=== PATIENT | male | born 1975 | race Caucasian/White ===

== ENCOUNTER 2023-10-07 11:55 | Inpatient (IN) | payer OTHER ==
[2023-10-07 12:37] VITALS: BMI 24.7
[2023-10-07] MEDS ORDERED: BISMUTH SUBSALICYLATE 524 MG/30 ML PO PRN (14:33)
[2023-10-07] MEDS ORDERED: methaDONE HCL 10 MG TABLET (FOR DETOX USE ONLY) PO ONE (14:33)
[2023-10-07] MEDS ORDERED: MAGNESIUM HYDROX 2400MG/30ML ORAL SUSPENSION 30 ML CUP PO PRN (14:33)
[2023-10-07] MEDS ORDERED: DICYCLOMINE HCL 10 MG CAPSULE PO PRN (14:33)
[2023-10-07] MEDS ORDERED: IBUPROFEN 400 MG TABLET (FP) PO PRN (14:33)
[2023-10-07] MEDS ORDERED: NICOTINE POLACRILEX 4 MG LOZENGE BC PRN (14:33)
[2023-10-07] MEDS ORDERED: ONDANSETRON *ODT* 4 MG TABLET SL PRN (14:33)
[2023-10-07] MEDS ORDERED: IBUPROFEN 600 MG TABLET (FP) PO PRN (14:33)
[2023-10-07] MEDS ORDERED: NICOTINE POLACRILEX 4 MG GUM BUC PRN (14:33)
[2023-10-07] MEDS ORDERED: LOPERAMIDE HCL 2 MG CAPSULE PO PRN (14:33)
[2023-10-07] MEDS ORDERED: BENZONATATE 200 MG CAPSULE PO PRN (14:33)
[2023-10-07] MEDS ORDERED: NALOXONE (NARCAN) HCL 4 MG/0.1 ML SPRAY NS PRN (14:33)
[2023-10-07] MEDS ORDERED: NALOXONE HCL 0.4 MG/ML VIAL IM PRN (14:33)
[2023-10-07] MEDS ORDERED: ACETAMINOPHEN 325 MG TABLET (FP) PO PRN (14:33)
[2023-10-07] MEDS ORDERED: guaiFENesin 600 MG TABLET.ER (FP) PO PRN (14:33)
[2023-10-07] MEDS ORDERED: BENZOCAINE/MENTHOL (CHLORASEPTIC ) LOZENGE MM PRN (14:33)
[2023-10-07] MEDS ORDERED: MAG HYDROX/AL HYDROX/SIMETH 30 ML UNIT-DOSE CUP PO PRN (14:33)
[2023-10-07] MEDS ORDERED: POLYETHYLENE GLYCOL (HEALTHYLAX) 3350 17 GM PACKET PO PRN (14:33)
[2023-10-07] MEDS ORDERED: ALBUTEROL SO4 HFA INHALER IH PRN (14:38)
[2023-10-07] MEDS ORDERED: ALBUTEROL SO4 0.083% IH SOL 2.5 MG/3 ML VIAL.NEB. NEB PRN (14:39)
[2023-10-07] MEDS ORDERED: FAMOTIDINE 20 MG TABLET PO SCH (16:00)
[2023-10-07] MEDS: PANTOPRAZOLE 20 MG TABLET PO SCH (16:49)
[2023-10-07] MEDS: methaDONE HCL 10 MG TABLET (FOR DETOX USE ONLY) PO ONE (17:29)
[2023-10-07] MEDS: chlordiazePOXIDE HCL 25 MG CAPSULE PO SCH (17:45)
[2023-10-07] MEDS: NICOTINE 21 MG/24 HOURS TOPICAL PATCH TD PRN (18:21)
[2023-10-07] MEDS: BUDESONIDE/FORMETEROL FUMARATE 160/4.5 mcg INHALER IH SCH (21:59)
[2023-10-07] MEDS: THIAMINE 100 MG TABLET PO SCH (22:01)
[2023-10-07] MEDS: MELATONIN 5 MG TABLETS PO SCH (22:01)
[2023-10-08] MEDS: chlordiazePOXIDE HCL 25 MG CAPSULE PO SCH (05:24)
[2023-10-08] MEDS: METHOCARBAMOL 500 MG TABLET PO PRN (06:10)
[2023-10-08] MEDS: PRENATAL VITAMINS W/ FOLIC ACID TABLET (FP) PO SCH (09:38)
[2023-10-08] MEDS: chlordiazePOXIDE HCL 25 MG CAPSULE PO PRN (13:33)
[2023-10-08] MEDS: SUVOREXANT 10 MG TABLET PO PRN (22:18)
[2023-10-09] MEDS ORDERED: chlordiazePOXIDE HCL 10 MG CAPSULE PO PRN
[2023-10-09] MEDS: cloNIDine HCL 0.1 MG TABLET PO PRN (01:35)
[2023-10-09] MEDS: hydrOXYzine PAMOATE 25 MG CAPSULE (FP) PO PRN (01:35)
[2023-10-09] MEDS: chlordiazePOXIDE HCL 10 MG CAPSULE PO SCH (05:04)
[2023-10-09 09:22] VITALS: RESP 16
[2023-10-09] MEDS ORDERED: diazePAM 5 MG TABLET PO PRN (09:25)
[2023-10-09] MEDS: methaDONE 40 MG, methaDONE 10 MG PO ONE (09:45)
[2023-10-09] MEDS ORDERED: methaDONE HCL 10 MG TABLET (FOR DETOX USE ONLY) PO ONE (10:00)
[2023-10-09 12:57] VITALS: BP 128/72; PULSE 70; TEMP 97.1
[2023-10-09] MEDS ORDERED: diazePAM 5 MG TABLET PO SCH (14:00)
[2023-10-09] MEDS ORDERED: SUVOREXANT 20 MG TABLET PO PRN (22:00)
[2023-10-10] MEDS ORDERED: chlordiazePOXIDE HCL 10 MG CAPSULE PO SCH (05:00)
[2023-10-10] MEDS ORDERED: diazePAM 5 MG TABLET PO SCH (06:00)
[2023-10-10] MEDS ORDERED: methaDONE 40 MG, methaDONE 20 MG PO ONE (10:00)
[2023-10-11] MEDS ORDERED: chlordiazePOXIDE HCL 10 MG CAPSULE PO ONE (05:00)
[2023-10-11] MEDS ORDERED: diazePAM 5 MG TABLET PO ONE (06:00)
[2023-10-11] MEDS ORDERED: methaDONE HCL 10 MG TABLET (FOR DETOX USE ONLY) PO ONE (10:00)
[2023-10-11] MEDS ORDERED: methaDONE 40 MG, methaDONE 30 MG PO ONE (10:00)
[2023-10-12] MEDS ORDERED: methaDONE HCL 40 MG DISPERSABLE TABLET PO ONE (10:00)
== END 2023-10-09 12:53 | disposition home or self-care (01) | DRG 773 ==
LOC: YASAS 11:55 → Y6N 16:26
PROVIDERS: ADMIT Allergy & Immunology; ATTEND Surgery
PROC: HZ2ZZZZ Detoxification Services for Substance Abuse Treatment (ICD-10-PCS; principal; 2023-10-07)
DX: F11.23 Opioid dependence with withdrawal (principal); F10.230 Alcohol dependence with withdrawal, uncomplicated; F17.210 Nicotine dependence, cigarettes, uncomplicated; F19.282 Other psychoactive substance dependence with psychoactive substance-induced sleep disorder; F19.280 Other psychoactive substance dependence with psychoactive substance-induced anxiety disorder; F19.24 Other psychoactive substance dependence with psychoactive substance-induced mood disorder; F41.9 Anxiety disorder, unspecified; J45.20 Mild intermittent asthma, uncomplicated; K21.9 Gastro-esophageal reflux disease without esophagitis
CPT/HCPCS: 80305; 93005; 93010